=== PATIENT | female | born 1955 | race Caucasian/White ===

== ENCOUNTER → 2017-08-14 | Day surgery (SDC) | payer BC ==
[~2017-08-14] MED LIST: ALPR0.5T3; ASPI325T33; BUPIVACAINE HCL PF 0.75% 30 ML VIAL ONE; DIAZ5 PO; DOXE10CA; LEVOTAB PO; LIDOCAINE 1.5%/EPINEPHrine 1:200,000 PF SOLN 30 ML AMP ONE; LISI-515; METO50TA; MIDAZOLAM HCL 5 MG/5 ML VIAL ONE; MIDAZOLAM HCL 5 MG/ML VIAL (1 ML) ONE; MONT10TA4; SIMV20TA; SODIUM CHLOR 0.9% 1000 ML BAG IV ONE; SODIUM CHLORIDE 0.9% SOLN 1000 ML BTL ONE; ZOLP10TA3; ceFAZolin INJ 1,000 MG VIAL ONE
--- NOTE | 2017-08-15 05:14 | TN ---
cc: DANN SANCHEZ MD DATE OF SURGERY 08/14/2017 ATTENDING SURGEON/PHYSICIAN MD Andrew PREOPERATIVE DIAGNOSIS Left shoulder impingement syndrome. AC joint arthritis. POSTOPERATIVE DIAGNOSIS Left shoulder impingement syndrome. AC joint arthritis. PROCEDURE Left shoulder arthroscopy with subacromial decompression including anterior acromioplasty and coracoacromial ligament release. Open excision distal clavicle. PROCEDURE IN DETAIL Informed consent was obtained. The patient was taken to the operating room, placed in the supine position on the operating room table. She was administered general anesthesia by Dr. Franco of the Anesthesia Department. She had received a block in the holding area. She also was treated with preoperative antibiotics. The patient was administered the anesthesia and was then placed in the lateral decubitus position on a beanbag. A sterile U-drape was applied over the shoulder. The shoulder was then prepped from the drapes to the fingertips with Betadine soap followed by Betadine paint. Draping commenced with sterile down sheets, sterile towels about the shoulder. Stockinette was applied over the hand and forearm; this was wrapped with a Coban. This had an attachment for a sterile rope. The sterile split sheets were applied. The rope was applied to the stockinette and 10 pounds of traction was placed utilizing the Acufex shoulder torres. A time-out was held and confirmed. At that time a marking pen was utilized to map out the location of the acromion, distal clavicle and humeral head. An 18-gauge spinal needle was placed in the region of the posterior angle of the acromion and directed towards the coracoid process. The shoulder joint was entered and infiltrated with 10 cc of 0.25% Marcaine with epinephrine. At that time a small incision was made with an 11-blade. The arthroscopic cannula was passed into the shoulder. The fluid was attached to the cannula. The 25-degree arthroscope was then placed in the shoulder. The biceps tendon appeared intact, although there was slight fraying along the tendon noted. The there was also slight fraying noted along the anterior aspect of the glenoid labrum. The humeral head appeared intact. There were some degenerative change noted. The glenoid, the undersurface of the rotator cuff was intact. The subscapularis was difficult to see but was intact. The middle half of the glenohumeral ligaments appeared intact. An anterior portal was established and the shaver was utilized to debride the anterior capsule. Once this was stable, this was checked and there was no anterior instability noted. The scope was then placed in the subacromial bursa region. The undersurface of the acromion was identified as was the coracoacromial ligament. The ligament was released and anterior acromioplasty was performed. Once satisfactory debridement had been completed, the cannulas were removed and a 15-blade was utilized to make a transverse incision over the AC joints. The skin and subcutaneous tissue was divided. The periosteum of the AC joint was divided longitudinally and this was opened. The distal clavicle was freed of periosteal attachments. Utilizing an oscillating saw the distal 1/4-inch of clavicle was removed. The bur was utilized to check the undersurface of the acromion and satisfactory debridement had been performed. At that time the wound was irrigated and closed utilizing #1 Vicryl in the deep tissues, 2-0 Vicryl in the deep subcu. The superficial subcu was closed with 3-0 plain suture interrupted stitches and the skin with 4-0 nylon interrupted stitches utilizing the Allgower type stitch. Steri-Strips were applied to her wounds. The arthroscopy portals were closed with 4-0 nylon stitch utilizing a simple stitch. Two stitches were placed in the lateral portal. Steri-Strips, 4x4s, ABD and tape were applied to the patient's shoulder. She was placed in a sling. She tolerated the procedure well and was then taken to the recovery room in stable condition. At the completion of the procedure sponge counts, instrument counts and needle counts were correct. The estimated blood loss was less than 10 cc. MD EFRA Alonzo/HENRIQUE /5:30 PM /4:58 AM
== END | disposition home or self-care (01) ==
LOC: ESDC 12:34
PROVIDERS: ATTEND Orthopaedic Surgery
DX: M75.42 Impingement syndrome of left shoulder (principal); M19.012 Primary osteoarthritis, left shoulder
CPT/HCPCS: 00450; 01630; 23120; 29822; 29826; 64417; 76942; J0690; J2250; J7030